=== PATIENT | female | born 1970 | race Caucasian/White ===

== ENCOUNTER 2018-08-10 13:10 | Emergency (ER) | payer OTHER ==
[~2018-08-10] VITALS: Ht 162.6 cm; Wt 90.7 kg
[2018-08-10] MEDS ORDERED: PROZAC20 MG PO (13:22)
== END 2018-08-10 14:30 | disposition home or self-care (01) ==
LOC: ED 13:10
DX: S93.402A Sprain of unspecified ligament of left ankle, initial encounter (principal); Z79.899 Other long term (current) drug therapy; X50.1XXA Overexertion from prolonged static or awkward postures, initial encounter; Y99.0 Civilian activity done for income or pay
CPT/HCPCS: 73610; 99283

== ENCOUNTER 2021-06-10 12:02 | Day surgery (SDC) | payer OTHER ==
[~2021-06-10] VITALS: Ht 165.1 cm; Wt 117.9 kg
[~2021-06-10 12:02] MED LIST: KEFLEX750 MG PO; PERCOCET 5-3251 EACH PO; PROZAC20 MG PO
[2021-06-10] MEDS ORDERED: VITAMIN D21250 MCG PO (12:22)
--- NOTE | 2021-06-10 14:25 | NUR ---
06/10/21 1425 Ayesha Bradley 1422 PATIENT ARRIVES TO PACU AWAKE, ANSWERS QUESTIONS APPROPRIATELY. RESP EVEN AND UNLABORED, NC AT 3 LITERS, TURNED OFF ON ARRIVALTO PACU. SATS 100% ON ROOM AIR. DENIES PAIN OR NAUSEA.RESTING WITH EYES CLOSED WHEN NOT STIMULATED.
--- NOTE | 2021-06-11 10:50 | OR ---
[facility] [address], [place] [address] Signed DATE OF OPERATION: 06/10/2021 SURGEON: Jabier Alvarez MD PREOPERATIVE DIAGNOSIS: Colon screening. POSTOPERATIVE DIAGNOSIS: Sigmoid diverticulosis. PROCEDURE: Total colonoscopy to cecum. ANESTHESIA: Intravenous sedation; fentanyl 100 mcg, Versed 6 mg. INDICATION: This 51-year-old white woman is a patient of IVANA Kirk and JONI Yusuf DO and has been referred for screening colonoscopy. She has no symptoms of bleeding diarrhea or constipation and no known family history of colon cancer. She is admitted to undergo screening colonoscopy. She understands the risks of bleeding, infection, and perforation. FINDINGS: The prep was excellent. Complete colonoscopy was undertaken of the cecum without question. She had no sign of polyps or colitis, but certainly did have sigmoid diverticulosis. All the diverticula are moderate in size. There was no other abnormality of the colon. DESCRIPTION OF PROCEDURE: The patient was brought to the endoscopy suite and placed in lateral decubitus position, given intravenous sedation to the point of slurred speech and nystagmus. Digital rectal examination was normal. An Olympus video colonoscope was passed in the rectum and manipulated throughout the colon ultimately intubating the cecum itself. The ileocecal valve and appendiceal orifice were normal. The scope was withdrawn from that point. Examination throughout showed no sign of abnormality until the left colon and sigmoid where scattered diverticula were noted. The scope was withdrawn to the rectum. Retroflexed view was undertaken and was normal. Scope was removed and the patient was taken to the recovery Electronically Signed By: JABIER ALVAREZ MD 06/11/21 1050 PATIENT NAME: LILIANA MCGRAW OPERATIVE REPORT DATE OF : 68 REPORT #: [id number] PHYSICIAN: JABIER ALVAREZ MD PCP: DEEP CONTRERAS REPORT IS CONFIDENTIAL AND NOT TO BE RELEASED WITHOUT AUTHORIZATION [facility] [address] [facility] [place] [place] [address] Signed room in good condition. CONCLUDING DIAGNOSIS: Diverticulosis of sigmoid. No evidence of cancer, polyps, or colitis. PLAN: Recommend high-fiber diet and repeat colonoscopy in 10 years based on current guidelines. MD ABBY [email or web address] /[id number] cc: DO Deep Toure PA Copies: SHIMON YUSUF LINDA PA ~ Electronically Signed By: JABIER ALVAREZ MD 06/11/21 1050 PATIENT NAME: LILIANA MCGRAW OPERATIVE REPORT DATE OF : 68 REPORT #: [id number] PHYSICIAN: JABIER ALVAREZ MD PCP: DEEP CONTRERAS REPORT IS CONFIDENTIAL AND NOT TO BE RELEASED WITHOUT AUTHORIZATION
== END 2021-06-10 15:02 ==
LOC: OPS 12:02 → DS 12:03 → OPS 13:00 → DS 13:00 → OPS 15:02
PROVIDERS: ATTEND Surgery
PROC: 0DJD8ZZ Inspection of Lower Intestinal Tract, Via Natural or Artificial Opening Endoscopic (ICD-10-PCS; principal; 2021-06-10 13:00)
DX: Z12.11 Encounter for screening for malignant neoplasm of colon (principal); K57.30 Diverticulosis of large intestine without perforation or abscess without bleeding; E66.01 Morbid (severe) obesity due to excess calories; Z68.41 Body mass index [BMI] 40.0-44.9, adult
CPT/HCPCS: 99153; G0500; J2250; J3010

== ENCOUNTER 2024-11-19 21:07 | Emergency (ER) | payer BC ==
[~2024-11-19] VITALS: Ht 162.6 cm; Wt 88.0 kg
[~2024-11-19 21:07] MED LIST changes: +VITAMIN D21250 MCG PO
[2024-11-19] MEDS ORDERED: DOTTI1 EACH TD (22:23)
[2024-11-19] MEDS ORDERED: PROGESTERONE100 MG PO (22:23)
[2024-11-19 23:12] VITALS: BP 165/85
== END 2024-11-19 23:12 | disposition home or self-care (01) ==
LOC: ED 21:07
DX: S60.211A Contusion of right wrist, initial encounter (principal); W18.30XA Fall on same level, unspecified, initial encounter; Z79.899 Other long term (current) drug therapy
CPT/HCPCS: 73110; 73130; 99283